=== PATIENT | female | born 1960 | race Caucasian/White ===

== ENCOUNTER 2016-12-23 09:50 | Day surgery (SDC) | payer OTHER ==
[~2016-12-23] VITALS: Ht 172.7 cm; Wt 95.3 kg
[~2016-12-23 09:50] MED LIST: BIOTIN 5000MCG PO; CELEBREX200 MG PO; FLEXERIL5 MG PO; FOLIC ACID0.4 MG PO; HYDROCODON-ACE1 EAC7 PO; LASIX40 MG PO; MECLIZINE HCL25 MG PO; MELATONIN5 M1 PO; MINERALS PO; MOBIC7.5 MG PO; MULTI PO; OMEPRAZOLE20 MG PO; PRILOSEC PO; TRAMADOL HCL50 MG PO; ULTRAM50 MG PO; VALIUM5 MG PO; WOMEN'S DAILY1 EAC1 PO; ZOLOFT25 MG PO; ZYRTEC10 M3 PO
[2016-12-27] MEDS ORDERED: NAPROSYN500 MG PO (10:30)
== END 2016-12-23 12:15 | disposition home or self-care (01) ==
LOC: PAIN 09:50 → SDC 10:30 → PAIN 12:15
DX: M47.812 Spondylosis without myelopathy or radiculopathy, cervical region (principal); F41.9 Anxiety disorder, unspecified; M47.816 Spondylosis without myelopathy or radiculopathy, lumbar region; M54.12 Radiculopathy, cervical region; Z87.891 Personal history of nicotine dependence; D64.9 Anemia, unspecified; K21.9 Gastro-esophageal reflux disease without esophagitis; E66.9 Obesity, unspecified; G47.30 Sleep apnea, unspecified; M46.84 Other specified inflammatory spondylopathies, thoracic region; E55.9 Vitamin D deficiency, unspecified; Z88.8 Allergy status to other drugs, medicaments and biological substances; Z68.38 Body mass index [BMI] 38.0-38.9, adult
CPT/HCPCS: J1030; J2250; J3010; S0020

== ENCOUNTER 2016-12-30 06:53 | Day surgery (SDC) | payer OTHER ==
[~2016-12-30] VITALS: Ht 172.7 cm; Wt 95.3 kg
[~2016-12-30 06:53] MED LIST changes: +NAPROSYN500 MG PO
== END 2016-12-30 08:30 | disposition home or self-care (01) ==
LOC: PAIN 06:53 → SDC 07:30 → PAIN 07:30
DX: M47.22 Other spondylosis with radiculopathy, cervical region (principal); M54.2 Cervicalgia; F41.9 Anxiety disorder, unspecified; M47.816 Spondylosis without myelopathy or radiculopathy, lumbar region; Z87.891 Personal history of nicotine dependence; K21.9 Gastro-esophageal reflux disease without esophagitis; D64.9 Anemia, unspecified; R70.0 Elevated erythrocyte sedimentation rate; E66.9 Obesity, unspecified; Z68.38 Body mass index [BMI] 38.0-38.9, adult; G47.30 Sleep apnea, unspecified; E55.9 Vitamin D deficiency, unspecified; Z88.8 Allergy status to other drugs, medicaments and biological substances
CPT/HCPCS: J1030; J2250; J3010; S0020

== ENCOUNTER 2017-04-07 06:52 | Day surgery (SDC) | payer OTHER ==
[~2017-04-07] VITALS: Ht 172.7 cm; Wt 99.8 kg
[~2017-04-07 06:52] MED LIST changes: +ZOLOFT100 MG PO
[2017-04-07] MEDS ORDERED: CITRACAL + D E1 EACH PO (07:13)
== END 2017-04-07 08:41 | disposition home or self-care (01) ==
LOC: PAIN 06:52 → SDC 07:30 → PAIN 08:41
DX: M47.22 Other spondylosis with radiculopathy, cervical region (principal); M54.2 Cervicalgia; M47.816 Spondylosis without myelopathy or radiculopathy, lumbar region; M79.7 Fibromyalgia; D64.9 Anemia, unspecified; K21.9 Gastro-esophageal reflux disease without esophagitis; M54.5 Low back pain; Z68.37 Body mass index [BMI] 37.0-37.9, adult; E66.9 Obesity, unspecified; G47.30 Sleep apnea, unspecified; Z87.891 Personal history of nicotine dependence
CPT/HCPCS: J1030; J2250; J3010; S0020

== ENCOUNTER 2017-04-14 06:47 | Day surgery (SDC) | payer OTHER ==
[~2017-04-14] VITALS: Ht 172.7 cm; Wt 99.8 kg
[~2017-04-14 06:47] MED LIST changes: +CITRACAL + D E1 EACH PO
== END 2017-04-14 08:40 | disposition home or self-care (01) ==
LOC: PAIN 06:47 → SDC 07:30 → PAIN 08:40
DX: M47.22 Other spondylosis with radiculopathy, cervical region (principal); M54.2 Cervicalgia; K21.9 Gastro-esophageal reflux disease without esophagitis; M47.816 Spondylosis without myelopathy or radiculopathy, lumbar region; F32.9 Major depressive disorder, single episode, unspecified; E66.9 Obesity, unspecified; Z68.37 Body mass index [BMI] 37.0-37.9, adult; G47.30 Sleep apnea, unspecified; Z87.891 Personal history of nicotine dependence; Z98.84 Bariatric surgery status
CPT/HCPCS: J1030; J2250; J3010; S0020

== ENCOUNTER 2018-04-16 06:55 | Emergency (ER) | payer OTHER ==
[~2018-04-16] VITALS: Ht 172.7 cm; Wt 102.4 kg
[~2018-04-16 06:55] MED LIST changes: -OMEPRAZOLE20 MG PO; +OMEPRAZOLE40 M1 PO; -WOMEN'S DAILY1 EAC1 PO; +WOMEN'S DAILY1 EAC4 PO
[2018-04-16 07:24] LABS: HEMATOCRIT 36.9 % (36.0-46.0); HEMOGLOBIN 12.2 G/DL (11.9-15.5); MCH 29.6 PG (29.0-34.0); MCHC 33.1 G/DL (30.0-36.0); MCV 89.6 FL (83-99); PLATELET COUNT 312 K/uL (156-360); RBC DIS.WIDTH-CV 13.5 % (11.8-14.6); RBC DIS.WIDTH-SD 44.3 % (39-53); RED BLOOD COUNT 4.12 M/uL (3.80-5.20); WHITE BLOOD COUNT 9.2 K/uL (4.1-10.2)
[2018-04-16 07:53] LABS: CHLORIDE 107 MEQ/L (99-109); CREATININE 0.6 MG/DL (0.6-1.3); GFR ESTIMATE (CALCULATED) > 59 mL/min/; GLUCOSE 115 mg/dL (70-99); POTASSIUM 4.1 MEQ/L (3.7-5.4); SODIUM 138 MEQ/L (136-147); UREA NITROGEN (BUN) 8 mg/dL (9-23)
[2018-04-16 09:25] LABS: TROP-I INTERPRETATION NEGATIVE; TROPONIN-I < 0.01 ng/mL (0.0-0.30)
[2018-04-16] MEDS ORDERED: TESSALON PERLE100 MG PO (10:20)
[2018-04-16] MEDS ORDERED: PHENERGAN-CODE120 ML PO (10:20)
[2018-04-16] MEDS ORDERED: VENTOLIN HFA18 GM IH (10:20)
[2018-04-16] MEDS ORDERED: PREDNISONE20 MG PO (10:20)
[2018-04-16 11:45] VITALS: BP 135/62
== END 2018-04-16 11:45 | disposition home or self-care (01) ==
LOC: EME 06:55
PROVIDERS: Nurse Practitioner Family
DX: J44.1 Chronic obstructive pulmonary disease with (acute) exacerbation (principal); R05 Cough; R51 Headache; Z87.891 Personal history of nicotine dependence
CPT/HCPCS: 71046; 80048; 84484; 85027; 85379; 93005; 94640; 94640 76; 99281; 99285; J2930

== ENCOUNTER 2018-04-19 06:59 | Observation (INO) | payer OTHER ==
[~2018-04-19] VITALS: Ht 172.7 cm; Wt 103.1 kg
[~2018-04-19 06:59] MED LIST changes: +PHENERGAN-CODE120 ML PO; +PREDNISONE20 MG PO; +TESSALON PERLE100 MG PO; +VENTOLIN HFA18 GM IH
[2018-04-19 07:32] LABS: HEMATOCRIT 36.6 % (36.0-46.0); HEMOGLOBIN 11.8 G/DL (11.9-15.5); MCH 29.2 PG (29.0-34.0); MCHC 32.2 G/DL (30.0-36.0); MCV 90.6 FL (83-99); PLATELET COUNT 341 K/uL (156-360); RBC DIS.WIDTH-CV 13.2 % (11.8-14.6); RBC DIS.WIDTH-SD 43.9 % (39-53); RED BLOOD COUNT 4.04 M/uL (3.80-5.20); WHITE BLOOD COUNT 6.8 K/uL (4.1-10.2)
[2018-04-19 08:08] LABS: CHLORIDE 103 MEQ/L (99-109); CREATININE 0.7 MG/DL (0.6-1.3); GFR ESTIMATE (CALCULATED) > 59 mL/min/; GLUCOSE 97 mg/dL (70-99); POTASSIUM 3.7 MEQ/L (3.7-5.4); SODIUM 141 MEQ/L (136-147); UREA NITROGEN (BUN) 15 mg/dL (9-23)
[2018-04-19 08:18] LABS: BASOPHIL (%) 0.6 % (0-1); EOSINOPHIL (%) 3.1 % (0-5); EOSINOPHIL COUNT 0.2 K/uL (0-0.3); IMMATURE GRANULOCYTE (%) 0.6 % (0.0-0.7); LYMPHOCYTE (%) 43.5 % (15-42); MONOCYTE (%) 13.3 % (3-12); MONOCYTE COUNT 0.9 K/uL (0-0.8); NEUTROPHIL (%) 38.9 % (45-76); NEUTROPHIL COUNT 2.7 K/uL (1.8-6.4)
[2018-04-19 13:09] VITALS: BP 115/63
[2018-04-19 15:11] VITALS: BP 108/56
[2018-04-19 19:25] VITALS: BP 116/60
[2018-04-20 00:01] VITALS: BP 114/57
[2018-04-20 04:12] VITALS: BP 117/55
[2018-04-20 05:53] LABS: BASOPHIL (%) 0.1 % (0-1); EOSINOPHIL (%) 0.1 % (0-5); HEMATOCRIT 32.1 % (36.0-46.0); HEMOGLOBIN 10.3 G/DL (11.9-15.5); IMMATURE GRANULOCYTE (%) 0.7 % (0.0-0.7); LYMPHOCYTE (%) 13.1 % (15-42); LYMPHOCYTE COUNT 1.4 K/uL (1.0-2.8); MCH 28.9 PG (29.0-34.0); MCHC 32.1 G/DL (30.0-36.0); MCV 89.9 FL (83-99); MONOCYTE (%) 3.1 % (3-12); MONOCYTE COUNT 0.3 K/uL (0-0.8); NEUTROPHIL (%) 82.9 % (45-76); NEUTROPHIL COUNT 9.1 K/uL (1.8-6.4); PLATELET COUNT 329 K/uL (156-360); RBC DIS.WIDTH-CV 13.2 % (11.8-14.6); RBC DIS.WIDTH-SD 43.5 % (39-53); RED BLOOD COUNT 3.57 M/uL (3.80-5.20)
[2018-04-20 06:23] LABS: ALBUMIN 3.7 G/DL (3.2-4.8); ALKALINE PHOSPHATASE 97 IU/L (3-129); ALT (GPT) 32 IU/L (3-49); AST (GOT) 40 IU/L (2-34); CHLORIDE 107 MEQ/L (99-109); CREATININE 0.5 MG/DL (0.6-1.3); GFR ESTIMATE (CALCULATED) > 59 mL/min/; GLUCOSE 180 mg/dL (70-99); POTASSIUM 4.1 MEQ/L (3.7-5.4); SODIUM 140 MEQ/L (136-147); TOTAL BILIRUBIN 0.2 MG/DL (0.0-1.0); TOTAL PROTEIN 6.1 G/DL (6.4-8.3); UREA NITROGEN (BUN) 11 mg/dL (9-23)
[2018-04-20 07:22] VITALS: BP 107/55
[2018-04-20 11:33] VITALS: BP 130/65
[2018-04-20] MEDS ORDERED: LEVOFLOXACIN750 MG PO (12:36)
[2018-04-20] MEDS ORDERED: AERONEB GO NEB1 EACH MC (12:36)
[2018-04-20] MEDS ORDERED: ADVAIR 250/501 DISK IH (12:36)
[2018-04-20] MEDS ORDERED: DUONEB 2.5-0.5 M3 ML AEROSOL (12:36)
[2018-04-20] MEDS ORDERED: PREDNISONE10 MG PO (12:36)
== END 2018-04-20 15:06 | disposition home or self-care (01) ==
LOC: EME 06:59 → 5SOUTH 11:32 → EDOF 11:32 → ENRESERV 11:34 → 5SOUTH 12:56
PROVIDERS: Emergency Medicine; Hospitalist
DX: J44.1 Chronic obstructive pulmonary disease with (acute) exacerbation (principal); J44.0 Chronic obstructive pulmonary disease with (acute) lower respiratory infection; J18.9 Pneumonia, unspecified organism; R09.02 Hypoxemia; Z87.891 Personal history of nicotine dependence; D72.829 Elevated white blood cell count, unspecified; T38.0X5A Adverse effect of glucocorticoids and synthetic analogues, initial encounter; G47.33 Obstructive sleep apnea (adult) (pediatric); R10.9 Unspecified abdominal pain; R16.0 Hepatomegaly, not elsewhere classified; R59.0 Localized enlarged lymph nodes; Z90.49 Acquired absence of other specified parts of digestive tract; M79.7 Fibromyalgia; E66.9 Obesity, unspecified; Z90.710 Acquired absence of both cervix and uterus; Z80.1 Family history of malignant neoplasm of trachea, bronchus and lung
CPT/HCPCS: 71046; 71275; 76705; 80048; 80076; 83605; 85025; 87040; 87070; 87205; 87449; 93005; 94640; 94640 76; 94660; 94799; 99202; 99281; 99285; G0378; J0295; J0456; J0696; J1650; J2920; J7030; J7050; J7512